=== PATIENT | female | born 1985 | race Asian ===

== ENCOUNTER 2023-05-17 04:58 | Emergency (ER) | payer BC, MEDICAID, OTHER ==
[~2023-05-17] VITALS: Ht 157.5 cm; Wt 69.4 kg
[2023-05-17 05:04] VITALS: BP_SYST 140; PULSE 87; RESP 17; TEMP 98.2; O2SAT 98
[2023-05-17 05:41] LABS: BILIRUBIN,URINE NEGATIVE (NEGATIVE); BLOOD, URINE 3+ (NEGATIVE); CLARITY/URINE CLEAR (CLEAR); COLOR,URINE YELLOW (YELLOW); GLUCOSE,URINE NEGATIVE (NEGATIVE); KETONES,URINE NEGATIVE (NEGATIVE); LEUKOCYTE ESTERASE ,URINE NEGATIVE (NEGATIVE); NITRITE, URINE NEGATIVE (NEGATIVE); PROTEIN URINE 1+ (NEGATIVE); UROBILINOGEN,URINE 0.2 (0.2-1.0)
[2023-05-17] MEDS ORDERED: KETOROLAC TROMETHAMINE 60 MG/2 ML VIAL IM ONE (05:45)
[2023-05-17 05:55] LABS: BACTERIA,URINE FEW /HPF (None Seen)
[2023-05-17] MEDS ORDERED: PHEN-727 PO (06:00)
[2023-05-17] MEDS ORDERED: CIPR500T5 PO (06:00)
[2023-05-17 06:03] VITALS: BP_SYST 135; PULSE 76; RESP 17; TEMP 97.2; O2SAT 98
[2023-05-17 06:13] LABS: BARBITURATE, URINE NEGATIVE (NEG <=200); BENZODIAZEPINE, URINE NEGATIVE (NEG <=150); CANNABINOID, URINE NEGATIVE (NEG <=50); COCAINE, URINE NEGATIVE (NEG <=150); METHAMPHETAMINES SCREEN,URINE NEGATIVE (NEG <=500); OPIATE, URINE NEGATIVE (NEG <=100); PHENCYCLIDINE SCREEN,URINE NEGATIVE (NEG <=25); UR TRICYCLIC ANTIDEPRESSANTS NEGATIVE (NEG <=300); URINE AMPHETAMINE NEGATIVE (NEG <=500); URINE METHADONE NEGATIVE (NEG <=200); URINE OXYCODONE SCREEN NEGATIVE (NEG <=100)
== END 2023-05-17 06:04 | disposition home or self-care (01) ==
LOC: SED 04:58
DX: N39.0 Urinary tract infection, site not specified (principal); R10.30 Lower abdominal pain, unspecified; Z79.899 Other long term (current) drug therapy
CPT/HCPCS: 99283; 80307; 81025; 96372; 81001; 81000; 81015; J1885